=== PATIENT | female | born 1940 | race Two or more races ===

== ENCOUNTER 2017-05-22 07:57 | Outpatient (CLI) | payer OTHER | END 2017-05-22 08:03 | disposition home or self-care (01) | LOC: SONOGRAMA 07:57 | DX: R22.2 Localized swelling, mass and lump, trunk (principal) ==

== ENCOUNTER 2017-06-02 07:54 | Outpatient (CLI) | payer OTHER | END 2017-06-02 13:57 | disposition home or self-care (01) | LOC: TOM 07:54 | DX: R22.2 Localized swelling, mass and lump, trunk (principal) | CPT/HCPCS: 70491; 71260; Q9965 ==